=== PATIENT | male | born 1955 | race African-American/Black ===

== ENCOUNTER 2016-08-15 15:10 | Emergency (ER) | payer MEDICAID, OTHER ==
[~2016-08-15] VITALS: Ht 170.2 cm; Wt 77.2 kg
[~2016-08-15 15:10] MED LIST: ASPI-518 PO; BENA40TA3 PO; CARI350T; DUCOLAX; HYDR25TA; IBUP-1008; LORA-16; LOVA10TA PO; RISP4TAB16
[2016-08-15 16:45] VITALS: BP 120/65
== END 2016-08-15 18:32 | disposition home or self-care (01) ==
LOC: ER 18:30
DX: S01.111A Laceration without foreign body of right eyelid and periocular area, initial encounter (principal); Y04.2XXA Assault by strike against or bumped into by another person, initial encounter; Y07.499 Other family member, perpetrator of maltreatment and neglect; Z63.8 Other specified problems related to primary support group; Y93.89 Activity, other specified; Y92.098 Other place in other non-institutional residence as the place of occurrence of the external cause; Z79.82 Long term (current) use of aspirin; Z79.899 Other long term (current) drug therapy
CPT/HCPCS: 12011; 99283; Z7610